=== PATIENT | male | born 2000 | race Caucasian/White ===

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

== ENCOUNTER 2022-03-16 20:32 | Emergency (ER) | payer OTHER ==
[2022-03-16 20:44] VITALS: BP 131/84; PULSE 110; RESP 20; TEMP 97.2; BMI 25.0
[2022-03-16] MEDS ORDERED: IBUPROFEN 600 MG TABLET (FP) PO ONE ×2 (22:19→22:35)
[2022-03-16] MEDS ORDERED: ALBUTEROL SO4 0.083% IH SOL 2.5 MG/3 ML VIAL.NEB. NEB ONE ×2 (22:27→22:35)
[2022-03-16] MEDS ORDERED: ONDANSETRON *ODT* 4 MG TABLET SL ONE (22:28)
[2022-03-16] MEDS ORDERED: ONDANSETRON *ODT* 4 MG TABLET ONE (22:35)
[2022-03-16 23:10] LABS: THROAT:GRP A STREP NOT DETECTED (NOTDETECTED)
== END 2022-03-17 00:45 | disposition home or self-care (01) ==
LOC: JER 20:32
PROC: 3E0F7GC Introduction of Other Therapeutic Substance into Respiratory Tract, Via Natural or Artificial Opening (ICD-10-PCS; principal; 2022-03-16)
DX: R07.89 Other chest pain (principal)
CPT/HCPCS: 0241U-QW; 71046-TC-FY; 87070; 87651; 93005; 93010; 99285-25; Q0162